=== PATIENT | female | born 1980 | race Caucasian/White ===

== ENCOUNTER → 2016-05-23 | Outpatient (REF) ==
[~2016-05-23] MED LIST: EFFE25TA PO; REVIA 50MG TABL50 MG PO; XANAX 0.5MG0.5 MG PO
== END ==
LOC: WSOH 09:10
DX: Z02.89 Encounter for other administrative examinations (principal)

== ENCOUNTER → 2016-05-24 | Outpatient (REF) | LOC: COL.LAB 09:09 → COL.ER 09:09 | DX: Z53.9 Procedure and treatment not carried out, unspecified reason (principal) ==